=== PATIENT | male | born 1955 | race Caucasian/White ===

== ENCOUNTER 2017-07-16 10:40 | Emergency (ER) | payer MEDICAID ==
[2017-07-16] MEDS ORDERED: IPRATROPIUM/ALBUTEROL 3 ML DEYVIAL IH ONE ×2 (11:19→12:28)
--- NOTE | 2017-07-16 11:21 | CPEKG ---
Heart Rate: 104 RR Interval: 577 P-R Interval: 128 QRSD Interval: 94 QT Interval: 340 QTC Interval: 448 P [place]: 86 QRS [place]: 81 T Wave [place]: 63 EKG Severity - ABNORMAL ECG - EKG Impression: SINUS TACHYCARDIA EKG Impression: BIATRIAL ABNORMALITIES EKG Impression: CONSIDER RIGHT VENTRICULAR HYPERTROPHY EKG Impression: BORDERLINE R WAVE PROGRESSION, ANTERIOR LEADS Electronically Signed By: Jeffrey Mix 16-Jul-2017 14:55:20
--- NOTE | 2017-07-16 11:34 | EDPHY ---
H & P Stated Complaint: Sob x 2 days no pain , recent flu s/s Time Seen by Provider: 07/16/17 11:33 - Medical/Surgical History Hx Asthma: No Hx Chronic Respiratory Disease: No Hx Diabetes: No Hx Cardiac Disease: No Hx Renal Disease: No Hx Cirrhosis: No Hx Alcoholism: No Hx HIV/AIDS: No Hx Splenectomy or Spleen Trauma: No Other PMH: denies PMH but has not seen a md in ? - Social History Smoking Status: Former smoker Constitutional: Initial Vital Signs Temperature (C) 36.8 C 07/16/17 10:51 Heart Rate 104 H 07/16/17 10:51 Respiratory Rate 24 H 07/16/17 10:51 Blood Pressure 138/99 H 07/16/17 10:51 O2 Sat (%) 90 L 07/16/17 10:51 O2 Delivery Mode Room Air O2 (L/minute) 2 Allergies/Adverse Reactions: No Known Allergies Allergy (Unverified 07/16/17 10:50) Home Medications: Medication Instructions Recorded Albuterol [Proventil Inhaler] 1 - 2 puffs IH Q4 #1 mdi 07/16/17 levOFLOXACIN [levAQUIN 750 MG (RX)] 750 mg PO DAILY #10 tab 07/16/17 methylPREDNISolone [Medrol Dose 1 each PO AD #1 ea 07/16/17 Rolan] Medical Decision Making - Diagnostics Imaging Results: Imaging Impressions Chest X-Ray 07/16/17 11:20 Impression: 1. No pneumonia. Airways disease +- emphysema. Imaging: I viewed and interpreted images myself ED Course/Re-evaluation: CHIEF COMPLAINT: Cough, dyspnea HISTORY OF PRESENT ILLNESS: The patient is a 62 y/o male complaining of shortness of breath for the last 2.5 weeks. His dyspnea was initially associated with myalgias, fever, and diaphoresis. He bought canned over-the- counter canned O2 to help his symptoms. Since then his symptoms improved until 2 days ago when his shortness of breath returned now associated with a cough. This more acute episode of dyspnea is worse while lying flat and with exertion. They changed their furnace filter yesterday and report the smoke and dust also exacerbated his symptoms. No chest pain, sore throat, abdominal pain, vomiting, diarrhea. Long history of smoking, hasn't been smoking since symptom onset. 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 No cardiac disease or respiratory disease history, but notes he has not seen a doctor in many years. REVIEW OF SYSTEMS: A 10 point review of systems was performed and is negative with the exception of the elements mentioned in the history of present illness. PHYSICAL EXAM: HR, BP, O2 Sat, RR. Temp noted General Appearance: Alert, well hydrated, appropriate, and non-toxic appearing. Head: Atraumatic without scalp tenderness or obvious injury Eyes: Pupils equal, round, reactive to light and accommodation, EOMI, no trauma , no injection. Nose: Atraumatic, no rhinorrhea, clear. Throat: There is no erythema or exudates, no lesions, normal tonsils, mucus membranes moist. Neck: Supple, nontender, no lymphadenopathy. Respiratory: No retractions, no distress, and no accessory muscle use. Lungs are have expiratory wheezing with prolonged expiratory wheezing to auscultation bilaterally. Sitting up, mildly tachypneic. Cardiovascular: Tachycardic regular rate and rhythm, no murmurs, rubs, or gallops. Good capillary refill all extremities. Gastrointestinal: Abdomen is soft, nontender, non-distended, no masses, no rebound, no guarding, no peritoneal signs. Musculoskeletal: Normal active ROM of all extremities, atraumatic. Neurological: Alert, appropriate, and interactive. The patient has non-focal cranial nerves, motor, sensory, and cerebellar exam. Skin: No rashes, good turgor, no nodules on palpation. 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 Lives in [place]. DIAGNOSTICS/PROCEDURES/CRITICAL CARE TIME: The 12 lead EKG was interpreted by myself. Sinus tachycardia. See hard copy and/ or "tracemaster" electronic copy for interpretation. Chest x-ray: +/- emphysema, no infiltrate DIFFERENTIAL DIAGNOSIS: The differential diagnosis for the patient's shortness of breath and hypoxemia included but was not limited to COPD exacerbation, influenza, pneumonia, myocardial infarction, acute mountain sickness, high altitude pulmonary edema, congestive heart failure, and pulmonary embolus. MEDICAL DECISION MAKING: This is a 62 y/o male with a long history of smoking who has not seen a doctor in many years and presents with 2-day history of orthopnea and exertional dyspnea in the setting of recent flu-like illness. He has wheezing bilaterally on exertion. Mildly hypoxemic at 90% on room air. Presentation likely COPD exacerbation and/or viral respiratory infection. Will evaluate for respiratory and cardiac etiology. Plan for IV, labs, EKG, chest x-ray. Duo neb administered. Some improvement with nebulizer on reassessment. Continues to be mildly tachycardic. Turned off O2 for room air trial. 10mg IV Decadron ordered. Flu swab pending. Discussed possibility of admission for likely COPD exacerbation and patient expresses he is reluctant to do this. Flu swab negative. This patient is borderline on room air at about 91%. He has emphysema but has never really been diagnosed. He is a lifelong smoker but has not seen a doctor. His x-ray looks like emphysema lungs. Additionally, I believe he is having an acute respiratory exacerbation. I offered admission, but he declined. I have given him 10 mg of Decadron and I will give him a Medrol Dosepak. In addition I am giving him an albuterol meter dose inhaler and Levaquin. He responded well to nebulizer treatments. He does not require oxygen but he clearly does require follow-up with a lung specialist. - Data Points Laboratory Results: Laboratory Results 07/16/17 11:17 07/16/17 11:17 07/16/1718 07/16/17 11:41 11:17 11:17 WBC 8.36 10^3/uL 10^3/uL (3.80-9.50) RBC 5.14 10^6/uL 10^6/uL (4.40-6.38) Hgb 16.9 g/dL g/dL (13.7-17.5) Hct 48.6 % % (40.0-51.0) MCV 94.6 fL fL (81.5-99.8) MCH 32.9 pg pg (27.9-34.1) MCHC 34.8 g/dL g/dL (32.4-36.7) RDW 12.7 % % (11.5-15.2) Plt Count 365 10^3/uL 10^3/uL (150-400) MPV 9.2 fL fL (8.7-11.7) Neut % (Auto) 79.2 % H % (39.3-74.2) Lymph % (Auto) 11.7 % L % (15.0-45.0) Steele % (Auto) 7.2 % % (4.5-13.0) Eos % (Auto) 1.0 % % (0.6-7.6) Baso % (Auto) 0.7 % % (0.3-1.7) Nucleat RBC Rel Count 0.0 % % (0.0-0.2) Absolute Neuts (auto) 6.62 10^3/uL H 10^3/uL (1.70-6.50) Absolute Lymphs (auto) 0.98 10^3/uL L 10^3/uL (1.00-3.00) Absolute Monos (auto) 0.60 10^3/uL 10^3/uL (0.30-0.80) Absolute Eos (auto) 0.08 10^3/uL 10^3/uL (0.03-0.40) Absolute Basos (auto) 0.06 10^3/uL 10^3/uL (0.02-0.10) Absolute Nucleated RBC 0.00 10^3/uL 10^3/uL (0-0.01) Immature Gran % 0.2 % % (0.0-1.1) Immature Gran # 0.02 10^3/uL 10^3/uL (0.00-0.10) Sodium 143 mEq/L mEq/L (135-145) Potassium 4.4 mEq/L mEq/L (3.5-5.2) Chloride 101 mEq/L mEq/L (97-110) Carbon Dioxide 23 mEq/l mEq/l (22-31) Anion Gap 19 mEq/L H mEq/L (8-16) BUN 15 mg/dL mg/dL (7-23) Creatinine 0.8 mg/dL mg/dL (0.7-1.3) Estimated GFR > 60 Glucose 104 mg/dL H mg/dL (70-100) Calcium 10.3 mg/dL mg/dL (8.5-10.4) Nasal Influenza A PCR NEGATIVE FOR FLU A (NEGATIVE) Nasal Influenza B PCR NEGATIVE FOR FLU B (NEGATIVE) Medications Given: Discontinued Medications Albuterol/Ipratropium (Duoneb) 3 ml IH EDNOW ONE Stop: 07/16/17 11:20 Last Admin: 07/16/17 11:40 Dose: 3 ml Albuterol/Ipratropium (Duoneb) 3 ml IH EDNOW ONE Stop: 07/16/17 12:29 Last Admin: 07/16/17 12:31 Dose: 3 ml Dexamethasone (Decadron Injection) 10 mg IVP EDNOW ONE Stop: 07/16/17 12:29 Last Admin: 07/16/17 12:32 Dose: 10 mg Departure - Departure Disposition: Home, Routine, Self-Care Clinical Impression: Chronic obstructive pulmonary disease with acute exacerbation Condition: Good Instructions: COPD (Chronic Obstructive Pulmonary Disease) (ED) Additional Instructions: 1. Take Levaquin as prescribed for infection. Be sure to complete the entire prescription. 2. Use albuterol inhaler as prescribed for shortness of breath and cough. 3. Take Medrol dose pack as prescribed. Be sure to complete entire prescription. 4. Follow up with radial drill press operator for plastic on Wednesday. 5. Return to the ED for any worsening of condition. Referrals: NONE *PRIMARY CARE P,. [Primary Care Provider] - As per Instructions Gulshan Ruiz MD [Medical Doctor] - As per Instructions Prescriptions: Albuterol [Proventil Inhaler] 1 - 2 puffs IH Q4 #1 mdi levOFLOXACIN [levAQUIN 750 MG (RX)] 750 mg PO DAILY #10 tab methylPREDNISolone [Medrol Dose Rolan] 1 each PO AD #1 ea Report Scribed for: Jeffrey Mix Report Scribed by: Bina Hines Date of Report: 07/16/17 Time of Report: 12:08
[2017-07-16 11:35] LABS: PLATELET COUNT 365 10^3/uL (150-400)
[2017-07-16] MEDS ORDERED: DEXAMETHASONE 10 MG/ML VIAL IVP ONE (12:28)
[2017-07-16 13:46] VITALS: BP 109/79; PULSE 98; RESP 18; TEMP 98.4; O2SAT 90
== END 2017-07-16 13:55 | disposition home or self-care (01) ==
DX: J44.1 Chronic obstructive pulmonary disease with (acute) exacerbation (principal); Z87.891 Personal history of nicotine dependence
CPT/HCPCS: 96374; J1100

== ENCOUNTER → 2018-11-28 | Outpatient (CLI) | payer MEDICAID | LOC: FIMAGING 09:44 ==